=== PATIENT | female | born 1960 | race Caucasian/White ===

== ENCOUNTER → 2023-09-05 12:09 | Outpatient (REF) | payer OTHER, SELFPAY | LOC: HWRAD 12:09 | PROVIDERS: ATTENDING PHYSICIAN Physician Assistant Medical | DX: M54.50 Low back pain, unspecified (principal) | CPT/HCPCS: 72110 ==

== ENCOUNTER → 2024-03-13 10:42 | Outpatient (REF) | payer MEDICARE, SELFPAY | LOC: HWWDC 10:42 | PROVIDERS: ATTENDING PHYSICIAN Physician Assistant Medical | DX: Z12.31 Encounter for screening mammogram for malignant neoplasm of breast (principal) | CPT/HCPCS: 77063; 77067 ==